=== PATIENT | female | born 1990 | race Caucasian/White ===

== ENCOUNTER 2021-03-08 09:13 | Inpatient (IN) | payer OTHER ==
[~2021-03-08] VITALS: Ht 170.2 cm; Wt 99.8 kg
[2021-03-08] MEDS ORDERED: LIDOCAINE HCL 1% 20ML VIAL (Pyxis) INJ INFIL SCH (11:00)
[2021-03-08] MEDS ORDERED: METHYLERGONOVINE MALEATE 0.2 MG/ML IM PRN (11:00)
[2021-03-08] MEDS ORDERED: DEXT 5%/LR + PITOCIN 20UNITS/L 1,000 ML IV SCH ×3 (11:00→20:30)
[2021-03-08] MEDS ORDERED: NALOXONE HCL 0.4 MG/ML 1ML VIAL IM PRN (11:00)
[2021-03-08] MEDS ORDERED: CARBOPROST TROMETHAMINE 250 MCG/ML AMPUL IM PRN (11:00)
[2021-03-08] MEDS ORDERED: BUTORPHANOL TARTRATE 2 MG/ML VIAL IV PRN (11:00)
[2021-03-08 11:21] LABS: BASOPHILS % 0.3 % (0.0-2.0); EOSINOPHILS % 0.8 % (0.0-5.0); HEMATOCRIT. 38.1 % (36.0-48.0); HEMOGLOBIN. 13.1 g/dL (12.0-16.0); LYMPHOCYTES % 21.3 % (20.0-50.0); MEAN CORPUSCULAR HEMOGLOBIN 29.4 pg (28.0-32.0); MEAN CORPUSCULAR VOLUME 85.3 fL (81.0-99.0); MEAN PLATELET VOLUME 11.4 fl (7.4-10.4); MONOCYTES % 5.2 % (2.0-8.0); NEUTROPHILS % 72.4 % (40.0-76.0); PLATELET 156 x1000/uL (130-400); RED BLOOD CELL COUNT 4.46 mill/uL (4.2-5.4); RED CELL DISTRIBUTION WIDTH 14.3 % (11.6-14.6)
[2021-03-08 11:25] LABS: CLARITY URINE CLEAR (CLEAR); COLOR URINE YELLOW (YELLOW); KETONES URINE NEGATIVE (NEGATIVE); LEUKOCYTE ESTERASE URINE 2+ (NEGATIVE); NITRITE URINE NEGATIVE (NEGATIVE); OCCULT BLOOD URINE NEGATIVE (NEGATIVE); PH URINE 6.5 (4.5-8.0); PROTEIN URINE NEGATIVE (NEGATIVE); SPECIFIC GRAVITY URINE 1.017 (1.005-1.030); UROBILINOGEN URINE 0.2 E.U./dL (0.2-1.0)
[2021-03-08 11:39] LABS: INR 0.9; PARTIAL THROMBOPLASTIN TIME 25.4 sec (23.4-31.0); PROTHROMBIN TIME 9.8 sec (9.6-11.0)
[2021-03-08 11:55] LABS: *COCAINE SCREEN URINE NEGATIVE (NEGATIVE); METHADONE URINE SCREEN NEGATIVE (NEGATIVE)
[2021-03-08 11:56] LABS: *AMPHETAMINES SCREEN URINE NEGATIVE (NEGATIVE); *BENZODIAZEPINES SCREEN URINE NEGATIVE (NEGATIVE); CANNABINOID URINE SCREEN NEGATIVE (NEGATIVE); OPIATES URINE SCREEN NEGATIVE (NEGATIVE); PHENCYCLIDINE URINE SCREEN NEGATIVE (NEGATIVE)
[2021-03-08 11:57] LABS: *BARBITURATES SCREEN URINE NEGATIVE (NEGATIVE)
[2021-03-08 12:18] LABS: HEPATITIS B SURFACE ANTIGEN NEGATIVE
[2021-03-08] MEDS: LACTATED RINGERS 1,000 ML IV SCH ×2 (13:37→15:21)
[2021-03-08] MEDS ORDERED: DIPHENHYDRAMINE 50MG/ML VIAL IV PRN (16:00)
[2021-03-08] MEDS ORDERED: ONDANSETRON HCL 4MG/2ML INJ IV PRN (16:00)
[2021-03-08] MEDS ORDERED: ROPIVACAINE HCL/PF EPIDURAL 200 ML EPI SCH (16:00)
[2021-03-08] MEDS ORDERED: IBUPROFEN 400MG TABLET PO PRN ×2 (19:45→20:30)
[2021-03-08] MEDS ORDERED: HEMORRHOIDAL SUPP PR PRN ×2 (19:45→20:30)
[2021-03-08] MEDS ORDERED: ACETAMINOPHEN WITH CODEINE 300/30MG TABLET PO PRN ×2 (19:45→20:30)
[2021-03-08] MEDS ORDERED: BENZOCAINE/LANOLIN/ALOE VERA SPRAY TOP PRN ×2 (19:45→20:30)
[2021-03-08] MEDS ORDERED: IBUPROFEN 800MG TABLET PO PRN (19:45)
[2021-03-08] MEDS ORDERED: RHO(D) IMMUNE GLOBULIN 300 MCG/SYR IM PRN (19:45)
[2021-03-08] MEDS ORDERED: BISACODYL 10MG SUPP PR PRN ×2 (19:45→20:30)
[2021-03-08] MEDS ORDERED: LANOLIN OINT 7GM TUBE TOP PRN ×2 (19:45→20:30)
[2021-03-08] MEDS ORDERED: GLYCERIN/WITCH HAZEL LEAF MEDICATED PAD TOP PRN ×2 (19:45→20:30)
[2021-03-08] MEDS ORDERED: DIPHENHYDRAMINE 25MG CAPSULE PO PRN (20:30)
[2021-03-08] MEDS ORDERED: SIMETHICONE 80MG TABLET CHEW PO SCH (21:00)
[2021-03-08] MEDS ORDERED: DOCUSATE SODIUM 100MG CAPSULE PO SCH (21:00)
[2021-03-08] MEDS ORDERED: MAGNESIUM/ALUMINUM HYDROXIDE/SIMETHICONE 30ML UDC PO SCH (21:00)
[2021-03-08 21:55] VITALS: BP 120/63
[2021-03-08] MEDS: MAGNESIUM/ALUMINUM HYDROXIDE/SIMETHICONE 30ML UDC PO SCH (22:28)
[2021-03-08] MEDS: IBUPROFEN 800MG TABLET PO PRN (22:29)
[2021-03-08] MEDS: SIMETHICONE 80MG TABLET CHEW PO SCH (22:29)
[2021-03-08 22:30] VITALS: BP 117/67
[2021-03-08] MEDS: DOCUSATE SODIUM 100MG CAPSULE PO SCH (22:30)
[2021-03-08 23:00] VITALS: BP 123/66
[2021-03-09 04:30] VITALS: BP 111/70
[2021-03-09 07:23] LABS: BASOPHILS % 0.2 % (0.0-2.0); EOSINOPHILS % 0.7 % (0.0-5.0); HEMATOCRIT. 34.7 % (36.0-48.0); HEMOGLOBIN. 11.8 g/dL (12.0-16.0); LYMPHOCYTES % 17.9 % (20.0-50.0); MEAN CORPUSCULAR HEMOGLOBIN 28.7 pg (28.0-32.0); MEAN CORPUSCULAR VOLUME 84.5 fL (81.0-99.0); MEAN PLATELET VOLUME 10.5 fl (7.4-10.4); MONOCYTES % 7.4 % (2.0-8.0); NEUTROPHILS % 73.8 % (40.0-76.0); PLATELET 131 x1000/uL (130-400); RED BLOOD CELL COUNT 4.11 mill/uL (4.2-5.4); RED CELL DISTRIBUTION WIDTH 14.3 % (11.6-14.6)
[2021-03-09] MEDS ORDERED: FERROUS SULFATE 325MG TABLET PO SCH (07:30)
[2021-03-09 08:00] VITALS: BP 104/59
[2021-03-09] MEDS ORDERED: PRENATAL VIT/FE FUMARATE/FA TABLET PO SCH (09:00)
[2021-03-09] MEDS: PRENATAL VIT/FE FUMARATE/FA TABLET PO SCH (09:21)
[2021-03-09] MEDS: FERROUS SULFATE 325MG TABLET PO SCH ×3 (09:22→16:49)
[2021-03-09] MEDS: MAGNESIUM/ALUMINUM HYDROXIDE/SIMETHICONE 30ML UDC PO SCH ×4 (09:22→22:22)
[2021-03-09] MEDS: SIMETHICONE 80MG TABLET CHEW PO SCH ×4 (09:22→22:21)
[2021-03-09 16:00] VITALS: BP 108/56
[2021-03-09 20:00] VITALS: BP 112/65
[2021-03-09] MEDS: DOCUSATE SODIUM 100MG CAPSULE PO SCH (22:22)
[2021-03-09] MEDS: IBUPROFEN 800MG TABLET PO PRN (22:23)
[2021-03-10] VITALS: BP 110/65
[2021-03-10 03:53] VITALS: BP 113/66
[2021-03-10] MEDS ORDERED: IBUP-2030 PO (06:59)
[2021-03-10] MEDS ORDERED: FERR325T23 PO (06:59)
[2021-03-10] MEDS ORDERED: MULT-1146 MT (06:59)
[2021-03-10] MEDS: MAGNESIUM/ALUMINUM HYDROXIDE/SIMETHICONE 30ML UDC PO SCH (07:30)
[2021-03-10 07:52] VITALS: BP 96/54
[2021-03-10] MEDS: SIMETHICONE 80MG TABLET CHEW PO SCH (08:58)
[2021-03-10] MEDS: FERROUS SULFATE 325MG TABLET PO SCH (08:58)
[2021-03-10] MEDS: PRENATAL VIT/FE FUMARATE/FA TABLET PO SCH (08:58)
== END 2021-03-10 10:50 | disposition home or self-care (01) | DRG 560 ==
LOC: OBSVTOIN 09:13 → 8 EST LDRP 09:13 → 8EST 21:47
PROVIDERS: ADMIT Obstetrics & Gynecology; ATTEND Obstetrics & Gynecology
PROC: 10E0XZZ Delivery of Products of Conception, External Approach (ICD-10-PCS; principal; 2021-03-09)
PROC: 3E0R3BZ Introduction of Anesthetic Agent into Spinal Canal, Percutaneous Approach (ICD-10-PCS; 2021-03-09)
PROC: 00HU03Z Insertion of Infusion Device into Spinal Canal, Open Approach (ICD-10-PCS; 2021-03-09)
PROC: 3E033VJ Introduction of Other Hormone into Peripheral Vein, Percutaneous Approach (ICD-10-PCS; 2021-03-09)
DX: O48.0 Post-term pregnancy (principal); Z37.0 Single live birth; O41.03X0 Oligohydramnios, third trimester, not applicable or unspecified; O77.0 Labor and delivery complicated by meconium in amniotic fluid; Z3A.40 40 weeks gestation of pregnancy; Z20.822 Contact with and (suspected) exposure to COVID-19
CPT/HCPCS: 36415; 76805; 76818; 80305; 81003; 85025; 86592; 86762; 86850; 86900; 87340; 87426; 99281; J2590; J2795; J7120; A4315

== ENCOUNTER 2022-10-04 20:04 | Inpatient (IN) | payer MEDICAID ==
[~2022-10-04] VITALS: Ht 170.2 cm; Wt 106.6 kg
[~2022-10-04 20:04] MED LIST: FERR325T23 PO; IBUP-2030 PO; MULT-1146 MT
[2022-10-04] MEDS ORDERED: PREN-176 PO (20:38)
[2022-10-04] MEDS ORDERED: PARO-41 PO (20:38)
[2022-10-04] MEDS ORDERED: NALOXONE HCL 0.4 MG/ML 1ML VIAL IM PRN (21:15)
[2022-10-04] MEDS ORDERED: BUTORPHANOL TARTRATE 2 MG/ML VIAL IV PRN (21:15)
[2022-10-04] MEDS ORDERED: LIDOCAINE HCL 1% 20ML VIAL (Pyxis) INJ INFIL SCH (21:15)
[2022-10-04] MEDS ORDERED: METHYLERGONOVINE MALEATE 0.2 MG/ML IM PRN (21:15)
[2022-10-04] MEDS: LACTATED RINGERS 1,000 ML IV SCH ×2 (22:36→23:24)
[2022-10-04 23:04] LABS: BASOPHILS % 0.2 % (0.0-2.0); EOSINOPHILS % 0.9 % (0.0-5.0); HEMATOCRIT. 35.6 % (36.0-48.0); HEMOGLOBIN. 12.2 g/dL (12.0-16.0); MEAN CORPUSCULAR HEMOGLOBIN 28.7 pg (28.0-32.0); MEAN PLATELET VOLUME 10.4 fl (7.4-10.4); MONOCYTES % 8.9 % (2.0-8.0); PLATELET 189 x1000/uL (130-400); RED BLOOD CELL COUNT 4.23 mill/uL (4.2-5.4)
[2022-10-04 23:07] LABS: CLARITY URINE CLOUDY (CLEAR); COLOR URINE YELLOW (YELLOW); KETONES URINE 2+ (NEGATIVE); LEUKOCYTE ESTERASE URINE 2+ (NEGATIVE); NITRITE URINE NEGATIVE (NEGATIVE); OCCULT BLOOD URINE NEGATIVE (NEGATIVE); PH URINE 6.5 (4.5-8.0); PROTEIN URINE 1+ (NEGATIVE); SPECIFIC GRAVITY URINE 1.032 (1.005-1.030)
[2022-10-04] MEDS: MISOPROSTOL 100MCG TABLET PO SCH (23:14)
[2022-10-04 23:16] LABS: INR 0.9; PARTIAL THROMBOPLASTIN TIME 24.4 sec (23.4-31.0); PROTHROMBIN TIME 9.8 sec (9.6-11.0)
[2022-10-04 23:23] LABS: *AMPHETAMINES SCREEN URINE NEGATIVE (NEGATIVE); *BARBITURATES SCREEN URINE NEGATIVE (NEGATIVE); *BENZODIAZEPINES SCREEN URINE NEGATIVE (NEGATIVE); *COCAINE SCREEN URINE NEGATIVE (NEGATIVE); CANNABINOID URINE SCREEN NEGATIVE (NEGATIVE); METHADONE URINE SCREEN NEGATIVE (NEGATIVE); OPIATES URINE SCREEN NEGATIVE (NEGATIVE); PHENCYCLIDINE URINE SCREEN NEGATIVE (NEGATIVE)
[2022-10-05 02:31] LABS: HEPATITIS B SURFACE ANTIGEN NEGATIVE
[2022-10-05] MEDS: MISOPROSTOL 100MCG TABLET PO SCH ×2 (03:02→07:03)
[2022-10-05] MEDS: LACTATED RINGERS 1,000 ML IV SCH ×3 (07:26→15:00)
[2022-10-05] MEDS ORDERED: ROPIVACAINE HCL/PF EPIDURAL 200 ML EPI ONE (09:58)
[2022-10-05] MEDS ORDERED: ROPIVACAINE HCL/PF EPIDURAL 200 ML EPI SCH (10:00)
[2022-10-05] MEDS: OXYTOCIN 30 UNITS/500ML NS PMX 500 ML IV SCH ×3 (12:04→22:15)
[2022-10-05] MEDS ORDERED: FENTANYL CITRATE/PF 50MCG/ML 2ML VIAL ONE (13:19)
[2022-10-05] MEDS ORDERED: ONDANSETRON HCL 4MG/2ML INJ IV PRN (16:15)
[2022-10-05] MEDS ORDERED: ACETAMINOPHEN 500MG TABLET PO PRN (19:45)
[2022-10-05] MEDS ORDERED: LANOLIN OINT 7GM TUBE TOP PRN (19:45)
[2022-10-05] MEDS ORDERED: OXYTOCIN 30 UNITS/500ML NS PMX 500 ML IV SCH (19:45)
[2022-10-05] MEDS ORDERED: HEMORRHOIDAL SUPP PR PRN (19:45)
[2022-10-05] MEDS ORDERED: DIPHENHYDRAMINE 25MG CAPSULE PO PRN (19:45)
[2022-10-05] MEDS ORDERED: RHO(D) IMMUNE GLOBULIN 300 MCG/SYR IM PRN (19:45)
[2022-10-05] MEDS ORDERED: GLYCERIN/WITCH HAZEL LEAF MEDICATED PAD TOP PRN (19:45)
[2022-10-05] MEDS ORDERED: BENZOCAINE/LANOLIN/ALOE VERA SPRAY TOP PRN (19:45)
[2022-10-05] MEDS ORDERED: BISACODYL 10MG SUPP PR PRN (19:45)
[2022-10-05] MEDS ORDERED: OXYCODONE HCL/ACETAMINOPHEN 5/325MG TABLET PO PRN (19:45)
[2022-10-05] MEDS ORDERED: IBUPROFEN 400MG TABLET PO PRN (19:45)
[2022-10-05] MEDS ORDERED: METHYLERGONOVINE MALEATE 0.2MG TABLET PO SCH (21:00)
[2022-10-05 21:45] VITALS: BP 121/66
[2022-10-05] MEDS: DOCUSATE SODIUM 100MG CAPSULE PO SCH (22:17)
[2022-10-05] MEDS: SIMETHICONE 80MG TABLET CHEW PO SCH (22:17)
[2022-10-05] MEDS: IBUPROFEN 800MG TABLET PO PRN (22:17)
[2022-10-05 23:00] VITALS: BP 112/54
[2022-10-06 00:30] VITALS: BP 115/58
[2022-10-06 04:00] VITALS: BP 109/65
[2022-10-06 07:11] LABS: BASOPHILS % 0.1 % (0.0-2.0); EOSINOPHILS % 0.6 % (0.0-5.0); HEMATOCRIT. 32.1 % (36.0-48.0); MEAN CORPUSCULAR HEMOGLOBIN 29.2 pg (28.0-32.0); MEAN CORPUSCULAR VOLUME 84.9 fL (81.0-99.0); MEAN PLATELET VOLUME 10.5 fl (7.4-10.4); MONOCYTES % 10.1 % (2.0-8.0); NEUTROPHILS % 71.2 % (40.0-76.0); PLATELET 139 x1000/uL (130-400); RED BLOOD CELL COUNT 3.78 mill/uL (4.2-5.4); RED CELL DISTRIBUTION WIDTH 14.2 % (11.6-14.6)
[2022-10-06] MEDS: SIMETHICONE 80MG TABLET CHEW PO SCH ×4 (07:40→20:57)
[2022-10-06] MEDS: FERROUS SULFATE 325MG TABLET PO SCH ×3 (07:40→17:30)
[2022-10-06] MEDS: IBUPROFEN 800MG TABLET PO PRN ×2 (07:41→18:24)
[2022-10-06 07:49] VITALS: BP 96/51
[2022-10-06] MEDS: PRENATAL VIT/FE FUMARATE/FA TABLET PO SCH (08:35)
[2022-10-06 15:18] VITALS: BP 105/62
[2022-10-06 19:30] VITALS: BP 116/68
[2022-10-06] MEDS: DOCUSATE SODIUM 100MG CAPSULE PO SCH (20:54)
[2022-10-07 03:05] VITALS: BP 132/71
[2022-10-07] MEDS: SIMETHICONE 80MG TABLET CHEW PO SCH (08:34)
[2022-10-07] MEDS: FERROUS SULFATE 325MG TABLET PO SCH (08:35)
[2022-10-07] MEDS: PRENATAL VIT/FE FUMARATE/FA TABLET PO SCH (08:35)
[2022-10-07 10:30] VITALS: BP 112/75
== END 2022-10-07 13:00 | disposition home or self-care (01) | DRG 560 ==
LOC: OBSVTOIN 20:04 → 8 EST LDRP 20:04 → 8EST 10-05 21:45
PROVIDERS: ADMIT Obstetrics & Gynecology; ATTEND Obstetrics & Gynecology
PROC: 10E0XZZ Delivery of Products of Conception, External Approach (ICD-10-PCS; principal; 2022-10-05)
PROC: 3E0R3BZ Introduction of Anesthetic Agent into Spinal Canal, Percutaneous Approach (ICD-10-PCS; 2022-10-05)
PROC: 00HU33Z Insertion of Infusion Device into Spinal Canal, Percutaneous Approach (ICD-10-PCS; 2022-10-05)
DX: O36.63X0 Maternal care for excessive fetal growth, third trimester, not applicable or unspecified (principal); Z37.0 Single live birth; O69.81X0 Labor and delivery complicated by cord around neck, without compression, not applicable or unspecified; Z20.822 Contact with and (suspected) exposure to COVID-19; Z3A.39 39 weeks gestation of pregnancy
CPT/HCPCS: 36415; 76805; 76818; 80305; 81003; 85025; 86592; 86703; 86762; 86850; 86900; 87340; 87426; 99281; G0378; J2405; J2795; J3010; A4315; J2590